=== PATIENT | male | born 2005 | race Caucasian/White ===

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

== ENCOUNTER 2025-02-07 14:38 | Emergency (ER) | payer OTHER, SELFPAY ==
[2025-02-07 14:44] VITALS: BP 152/105; PULSE 57; RESP 16; TEMP 36.8; O2SAT 98; BMI 30.1
--- NOTE | 2025-02-07 15:14 | W.ED.ABDPA2 ---
HPI - Abdominal Pain General: Chief Complaint: Nausea/Vomiting/Diarrhea Stated Complaint: NV (3xdays) Time Seen by Provider: 02/07/25 14:53 Source: patient and family Mode of arrival: ambulatory Limitations: no limitations History of Present Illness: Patient is a 19-year-old male here with family for concerns of nausea, vomiting, diarrhea, abdominal pain. Patient states he began developing acute onset nausea and vomiting while at work on Friday. Patient states nausea and vomiting persisted into Friday and he also began developing diarrhea as well as abdominal pain. He has noticed some dark red color in his emesis. He states abdominal pain has been constant and worsening in severity since onset. He is rating his abdomen currently at a 7/10 and worsens with any form of movement. Pain is mainly located to his right lower quadrant. He has not been running fevers but has felt flushed and sweaty. Denies poor food exposures. No sick contacts. Patient does not use marijuana. No alcohol/NSAID use. MD elicited complaint: abdominal pain Pertinent past history: none Onset (ago): day(s) Pain Consistency: constant Location: Diffuse and RLQ Severity: severe Pain scale (0-10): 7 Radiation: none Migration to: no migration Exacerbating factors: eating and movement Relieving factors: nothing Associated Symptoms: Reports diarrhea, hematemesis, nausea and vomiting; Denies chills, dysuria, fever(s), hematochezia and melena Related Data Home Medications ?Medication ?Instructions ?Recorded ?Confirmed No Known Home Medications 02/07/25 02/07/25 Allergies Allergy/AdvReac Type Severity Reaction Status Date / Time No Known Allergies Allergy Verified 02/07/25 14:46 Review of Systems Const: Reports: body aches; Denies: fever(s), chills, fatigue or malaise Card: Denies: chest pain Resp: Denies: dyspnea GI: Reports: abdominal pain, nausea, vomiting, hematemesis and diarrhea; Denies: hematochezia or melena : Denies: flank pain, difficulty urinating, dysuria, urinary frequency, urinary urgency or urinary hesitancy Musc: Denies: neck pain, back pain, extremity pain, extremity swelling, joint pain, joint swelling or joint redness Skin/Breast: Denies: rash Neuro: Denies: headache(s), numbness in extremities, weakness in extremities, sensory changes or dizziness [facility] ED PFSH: Medical History Psychiatric care Auditory hallucination Depression Social History Smoking and tobacco/nicotine status: never used tobacco/nicotine Alcohol intake: never Substance/Drug Use: never Physical Exam Const: COMMON NORMALS: patient oriented x3, no limitations, alert and well nourished GENERAL APPEARANCE: cooperative ORIENTATION/CONSCIOUSNESS: Yes awake, Yes oriented to person, Yes oriented to place and Yes oriented to time OTHER: facial flushing, sweating HENMT: COMMON NORMALS: normocephalic and atraumatic HEAD & SCALP: normal to inspection, normocephalic and atraumatic Eye: COMMON NORMALS: no scleral icterus Resp: COMMON NORMALS: normal respiratory effort and clear to auscultation bilaterally AUSCULTATION: clear to auscultation bilaterally Cardio: COMMON NORMALS: regular rate and regular rhythm RATE: regular rate RHYTHM: regular rhythm GI: COMMON NORMALS: Normal to inspection, nondistended, normoactive bowel sounds present, Soft to palpation, No hepatosplenomegaly present and no masses INSPECTION: Yes normal to inspection AUSCULTATION: Yes normoactive bowel sounds PALPATION: Yes Soft to palpation, Yes Tenderness to palpation present (GI) (max tenderness RLQ), Yes Guarding due to palpation present (GI), No Rigid due to palpation, Yes No hepatosplenomegaly present and Yes Other GI palpation findings present (+ psoas, obturator, heel tap) : COMMON NORMALS: Yes no CVA tenderness BLADDER/KIDNEY EXAM: Yes no CVA tenderness Back/Pelvis: COMMON NORMALS: no CVA tenderness Extremity: GENERAL: Yes normal exam except as noted Neuro: COMMON NORMALS: patient oriented x3, moves all extremities, no focal motor deficits and no sensory deficits noted SENSORIUM/ORIENTATION: Yes alert, Yes oriented to person, Yes oriented to place and Yes oriented to time Skin: COMMON NORMALS: no rashes or lesions noted GENERAL SKIN EXAM: no rashes or lesions noted Course Vital Signs: Vital signs: Vital Signs Temperature 98.3 F 02/07/25 14:44 Pulse Rate 50 L 02/07/25 16:19 Respiratory Rate 16 02/07/25 15:31 Blood Pressure 150/104 02/07/25 16:19 Pulse Oximetry 95 02/07/25 16:19 Oxygen Delivery Me thod Room Air 02/07/25 16:19 MDM - Abdominal Pain Medical Decision Making On re-examination patient appears much more comfortable. His vital signs remained stable throughout his ED stay. His blood work overall is unremarkable. He has a normal white count and normal CRP. Chemistry without derangement. His lipase is normal. UA is clear. CT scan showing no acute evidence of acute intra-abdominal or pelvic pathology. Patient feels comfortable following up with his primary care provider later this week. Return to ED precautions discussed. Differential Diagnosis Likely abdominal pain, acute appendicitis, calculus of kidney, gastroenteritis and pancreatitis Medical Records I reviewed the patient's medical records. Lab Data I reviewed the patient's lab results. 02/07/25 15:09 02/07/25 15:09 Labs/Radiology: Radiology Impressions Abdomen/Pelvis CT 02/07/25 15:23 IMPRESSION: No CT evidence of acute intra-abdominal or pelvic pathology. Laboratory Results WBC 5.85 10^3/uL (4.5-13.0) 02/07/25 15:09 RBC 5.48 10^6/uL (3.85-5.65) 02/07/25 15:09 Hgb 16.30 g/dL (13.2-15.6) H 02/07/25 15:09 Hct 46.6 % (37-53) 02/07/25 15:09 MCV 85.0 fl (82-101) 02/07/25 15:09 MCH 29.7 pg (27-33) 02/07/25 15:09 MCHC 35.0 g/dL (30-55) 02/07/25 15:09 RDW 12.3 % (12.1-15.1) 02/07/25 15:09 Plt Count 302 10^3/cmm (157-399) 02/07/25 15:09 MPV 10.6 fL (7.4-10.4) H 02/07/25 15:09 Neut % (Auto) 55.5 % 02/07/25 15:09 Lymph % (Auto) 36.2 % 02/07/25 15:09 [place] % (Auto) 6.0 % 02/07/25 15:09 Eos % (Auto) 1.4 % 02/07/25 15:09 Baso % (Auto) 0.7 % 02/07/25 15:09 Neut # (Auto) 3.25 10^3/uL (1.8-8.0) 02/07/25 15:09 Lymph # (Auto) 2.1 10^3/uL (1.5-6.5) 02/07/25 15:09 [place] # (Auto) 0.4 10^3/uL (0.2-0.9) 02/07/25 15:09 Eos # (Auto) 0.1 10^3/uL (0.0-0.8) 02/07/25 15:09 Baso # (Auto) 0.0 10^3/uL (0.0-0.1) 02/07/25 15:09 Nucleated RBC % (auto) 0 % 02/07/25 15:09 Nucleated RBCs # 0.0 /100WBC 02/07/25 15:09 Sodium 139 mmol/L (136-145) 02/07/25 15:09 Potassium 4.2 mmol/L (3.5-5.1) 02/07/25 15:09 Chloride 103 mmol/L (98-107) 02/07/25 15:09 Carbon Dioxide 25 mmol/L (22-29) 02/07/25 15:09 Anion Gap 15.2 (5-19) 02/07/25 15:09 BUN 8 mg/dL (6-20) 02/07/25 15:09 Creatinine 0.6 mg/dL (0.7-1.2) L 02/07/25 15:09 GFR Calculation 173.6 mL/min (90-130) H 02/07/25 15:09 Glucose 94 mg/dL (65-115) 02/07/25 15:09 Calculated Osmolality 286 mOsm/kg (285-295) 02/07/25 15:09 Calcium 9.9 mg/dL (8.5-10.5) 02/07/25 15:09 Total Bilirubin 0.5 mg/dL (0.15-1.2) 02/07/25 15:09 AST 19 U/L (0-40) 02/07/25 15:09 ALT 34 U/L (0-41) 02/07/25 15:09 Alkaline Phosphatase 65 U/L (40-130) 02/07/25 15:09 C-Reactive Protein 3.0 mg/L (0.0-4.9) 02/07/25 15:09 Total Protein 8.1 g/dL (6.6-8.7) 02/07/25 15:09 Albumin 4.8 g/dL (3.5-5.2) 02/07/25 15:09 Globulin 3.3 g/dL (1.3-4.6) 02/07/25 15:09 Lipase 15 U/L (13-60) 02/07/25 15:09 Urine Color Yellow (Yellow) 02/07/25 15:12 Urine Appearance Clear (CLEAR) 02/07/25 15:12 Urine pH 8.0 (5-7) A 02/07/25 15:12 Ur Specific [place] 1.018 (1.005-1.030) 02/07/25 15:12 Urine Protein Trace (Negative) A 02/07/25 15:12 Urine Glucose (UA) Negative (Normal) 02/07/25 15:12 Urine Ketones Negative (Negative) 02/07/25 15:12 Urine Blood Negative (Negative) 02/07/25 15:12 Urine Nitrate Negative (Negative) 02/07/25 15:12 Urine Bilirubin Negative (Negative) 02/07/25 15:12 Urine Urobilinogen 1.0 mg/dL (Negative) 02/07/25 15:12 Ur Leukocyte Esterase Negative (Negative) 02/07/25 15:12 Urine RBC 0-2 /hpf (0-2) 02/07/25 15:12 Urine WBC 0-5 /hpf (0-5) 02/07/25 15:12 Ur Squamous Epith Cells 0-5 /hpf (0-5) 02/07/25 15:12 Amorphous Sediment Not Reportable 02/07/25 15:12 Urine Bacteria None seen /hpf (NONE) 02/07/25 15:12 Hyaline Casts 0.40 /lpf 02/07/25 15:12 All radiology interpretation(s) finalized by discharge Discharge Plan Discharge Patient Disposition: Home Clinical Impression: Abdominal pain of unknown etiology Condition: Stable Prescriptions: No Action No Known Home Medications Discharge Orders: Discharge ED (Routine); Ordered 02/07/25 Ordered By: Sally Francois Referrals: Austen Mendosa FNP [Primary Care Provider] Patient Instructions: Abdominal Pain (ED), Patient Portal & Charlee Instructions Activity Restrictions/Additional Instructions: As we discussed, blood work here as well as CT imaging was reassuring. We discussed following up with primary care later this week for re-evaluation. You need to return to the emergency department for onset of worsening or severe abdominal pain, fevers, generally feeling worse or unwell, or any other concerns you may have. I hope you begin to feel better soon. Stand Alone Forms: Work/School Release Print Language: Palauan Coding Level of Care Code ED Industrial Relations Representative for [employer] Rodriguez
[2025-02-07 15:15] LABS: Hematocrit 46.6 % (37-53); Hemoglobin 16.30 g/dL (13.2-15.6); Mean Corpuscular HGB Conc 35.0 g/dL (30-55); Mean Corpuscular Hemoglobin 29.7 pg (27-33); Mean Corpuscular Volume 85.0 fl (82-101); Nucleated Red Blood Cells % 0 %; Platelet Count 302 10^3/cmm (157-399); Red Blood Count 5.48 10^6/uL (3.85-5.65); White Blood Count 5.85 10^3/uL (4.5-13.0)
--- NOTE | 2025-02-07 15:23 | CTR_ITS ---
PROCEDURE INFORMATION: Exam: CT Abdomen And Pelvis With Contrast Exam date and time: 02/07/2025 3:37 PM Age: 19 years old Clinical indication: Abdominal pain; Generalized; Additional info: Abdominal pain, n/v/d, max tenderness rlq TECHNIQUE: Imaging protocol: Computed tomography of the abdomen and pelvis with contrast. Axial, coronal and sagittal reformatted images were created and reviewed. Radiation optimization: All CT scans at this facility use at least one of these dose optimization techniques: automated exposure control; mA and/or kV adjustment per patient size (includes targeted exams where dose is matched to clinical indication); or iterative reconstruction. Contrast material: OMNIPAQUE 350; Contrast volume: 100 ml; Contrast route: INTRAVENOUS (IV); COMPARISON: CT abdomen pelvis w con* [id number] 09/26/2020 10:52 AM RADIATION DOSE METRICS: Total DLP (mGy-cm): 1037.53 FINDINGS: Liver: Unremarkable. Gallbladder and biliary ducts: No radiodense gallstones. No biliary ductal dilatation. Pancreas: Unremarkable. Spleen: Unremarkable. Adrenal glands: Normal. No mass. Kidneys and ureters: No mass. No radiodense calculi. No hydronephrosis. Stomach and bowel: No bowel wall thickening. No obstruction. No pneumatosis. Appendix: Normal. Intraperitoneal space: No free fluid. No organized fluid collection. No free air. Vasculature: Unremarkable. No aneurysm. Lymph nodes: No pathologically enlarged lymph nodes. Urinary bladder: Unremarkable as visualized. Reproductive: Unremarkable. Bones/joints: No acute osseous abnormality. Soft tissues: Unremarkable. CT/CT abdomen pelvis w con* [id number] IMPRESSION: No CT evidence of acute intra-abdominal or pelvic pathology.
[2025-02-07 15:27] LABS: Glucose Urine UA Negative (Normal); Nitrate Urine Negative (Negative); Specific Gravity, Urine 1.018 (1.005-1.030)
[2025-02-07] MEDS: ondansetron 2 mg/ML SDV 2 mL 4 MG IVP (15:28)
[2025-02-07 15:31] VITALS: RESP 16
[2025-02-07] MEDS: morphine 4 mg/mL SDV 1 mL IVP (15:31)
[2025-02-07 15:33] LABS: Alanine Aminotransferase 34 U/L (0-41); Albumin Level 4.8 g/dL (3.5-5.2); Alkaline Phosphatase 65 U/L (40-130); Anion Gap 15.2 (5-19); Aspartate Amino Transferase 19 U/L (0-40); Blood Urea Nitrogen 8 mg/dL (6-20); Calcium 9.9 mg/dL (8.5-10.5); Carbon Dioxide 25 mmol/L (22-29); Chloride 103 mmol/L (98-107); Creatinine Clr Calc Pharmacy 229.4003; Globulin 3.3 g/dL (1.3-4.6); Glucose 94 mg/dL (65-115); Lipase 15 U/L (13-60); Osmolality Calculated 286 mOsm/kg (285-295); Potassium 4.2 mmol/L (3.5-5.1); Sodium 139 mmol/L (136-145); Total Protein 8.1 g/dL (6.6-8.7)
[2025-02-07 15:33] LABS: Add Urine Microscopic? YES
[2025-02-07] MEDS: iohexol 350 mg/mL 500 mL Btl (per mL) IV (15:41)
[2025-02-07 16:19] VITALS: BP 150/104; PULSE 50; O2SAT 95
[2025-02-07 17:15] VITALS: BP 148/81; PULSE 56; O2SAT 96
--- OUTSIDE RECORDS SUMMARY | 2025-02-09 11:25 | XMS_ITS | Clinical Summary ---
Author Organization [facility] Address [address] [place] [address] Care Team Providers Care Creative Services Producer Name Role Phone KirkMich espino Brenda GARCIA Primary Care Provider [phone] Allergies No known active allergies Medications cetirizine (ZYRTEC) 10 mg tablet Take 10 mg by mouth daily. Active inhalational spacing device Spacer 1 Device by [facility].(Non-Drug; Combo Route) route see administration instructions. Active fluticasone (FLOVENT HFA) 110 mcg/actuation HFA Aerosol InhalerIndicati ons:Cough,Dyspn ea, unspecified Take 2 Puffs by inhalation 2 times daily. 12 Gram 4 09/14/19 16 Active albuterol (PROVENTIL,VENT MOJGAN) 2.5 mg /3 mL (0.083 %) Solution for NebulizationInd ications:Cough, Dyspnea, unspecified Take 3 mL (2.5 mg) by inhalation every 4 hours as needed for Respiration. 150 mL 4 09/14/19 16 Active albuterol HFA 90 mcg inhalerIndicati ons:Cough,Dyspn ea, unspecified Take 2 Puffs by inhalation every 4 hours as needed for Respiration. 8.5 Gram 4 09/14/19 16 Active topiramate (TOPAMAX) 25 mg tablet 25 mg in am 50 mg in pm. 90 Tablet 09/20/19 17 Active Active Problems Problem Noted Date Diagnosed Date Allergic symptoms 09/14/2015 Lobar pneumonia due to unspecified organism 03/31 Family History Medical History Relation Name Comments Allergic Rhinitis Father Bob Allergic Rhinitis Mother Karma Anxiety Mother Karma Asthma Mother Karma GERD Mother Karma Allergy-severe Neg Hx Chronic Sinusitis Neg Hx Cystic Fibrosis Neg Hx Eczema Neg Hx Immunodeficiency Neg Hx Tuberculosis Neg Hx Relation Name Status Comments Brother Makenna Alive Father Bob Alive Mother Karma Alive Sister Yolanda Alive Social History Tobacco Use Types Packs/Day Years Used Date Smoking Tobacco: Never Assessed Sex and Gender Information Value Date Recorded Sex Assigned at Not on file Legal Sex Male 3:35 PM CDT Gender Identity Not on file Sexual Orientation Not on file Last Filed Vital Signs Vital Sign Reading Time Taken Comments Blood Pressure 125/80 08/02/2016 12:51 PM [employer] Pulse 98 08/02/2016 12:51 PM [employer] Temperature - - Respiratory Rate 18 09/14/2015 11:27 AM CDT Oxygen Saturation 97% 08/02/2016 12:51 PM [employer] Inhaled Oxygen Concentration - - Weight 56.2 kg (124 lb) 08/02/2016 12:51 PM [employer] Height 148.8 cm (4' 10.6 ) 08/02/2016 12:[address] Body Mass Index 25.39 08/02/2016 12:51 PM [employer] Body Mass Index Percentile 96.41% 08/02/2016 12: 51 PM [employer] Growth Chart: CDC (Boys, 2-2 0 Years) Plan of Treatment Health Maintenance Due Date Last Done Comments CHLAMYDIA SCREENING (ANNUAL) 11-24 YEARS 2016 HPV VACCINES (1 - Male 3-dose series) 2020 DTAP/TDAP/TD VACCINES (1 - Tdap) 2024 HEPATITIS B VACCINES (1 of 3 - 19+ 3-dose series) 03/01 INFLUENZA VACCINE (#1) 2025 Insurance MEDICAID [place] Care Teams Creative Services Producer Relationship Specialty Start Date End Date Mich Bradley DO [address] [place] [address] PCP - General Family Practice 12/12/14
--- OUTSIDE RECORDS SUMMARY | 2025-02-09 11:25 | XMS_ITS | Clinical Summary ---
Author Organization [employer] [facility] Address [address] Sharma: [place] [address] Care Team Providers Care Frit Coater Name Role Phone Falguni Alvarez Primary Care Provider Allergies Active Allergy Reactions Criticality Noted Date Comments Cat Dander Unknown 06/27/2023 Milk Diarrhea Medium 04/17/2020 Medications ZOLMitriptan (ZOMIG) [place], Non-Aerosol ADMINISTER 1 SPRAY INTO ONE NOSTRIL NEEDED FOR MIGRAINE 2 Active albuterol sulfate HFA 90 mcg/actuation aerosol inhalerIndicatio ns:Moderate persistent asthma with acute exacerbation Take 2 Puffs by inhalation every 4 hours as needed for Wheezing or Shortness of Breath. 8.5 Gram 4 3 Active traZODone (DESYREL) 50 mg tablet Take 50 mg by mouth daily at bedtime. 3 Active hydrOXYzine pamoate (VISTARIL) 25 mg capsule 25 mg every 6 hours as needed. 3 Active cholecalciferol 1,250 mcg (50,000 unit) CapsuleIndicatio ns:Vitamin D deficiency Take 1 Capsule (50,000 Units) by mouth every 7 days. 13 Capsule 1 4 Active Additional Information Patient not taking.Reported on 08/13/2024 sertraline (Zoloft) 50 mg tabletIndication s:Severe episode of recurrent major depressive disorder, without psychotic features (CMS/HCC) Take 1 Tablet (50 mg) by mouth daily. 90 Tablet 3 Active Active Problems Problem Noted Date Diagnosed Date Severe episode of recurrent major depressive disorder, without psychotic features 08/13/2024 Vitamin D deficiency 08/13/2024 Intractable migraine with aura with status migra inosus 06/18/2022 Mild intermittent asthma without complication Allergic symptoms 09/14/2015 Resolved Problems Problem Noted Date Diagnosed Date Resolved Date Lobar pneumonia due to unspecified organism 04/24/2015 06/18/2022 Encounters Date Type Department Care Team Description 02/02/2025 External Device Data [facility] Provider, Abstract 12/28/2024 External Device Data [facility] Provider, Abstract from Last 3 Months Family History Medical History Relation Name Comments Allergic Rhinitis Father Bob Allergic Rhinitis Mother Asha Anxiety Mother Asha Asthma Mother Asha GERD Mother Asha Allergy-severe Neg Hx Chronic Sinusitis Neg Hx Cystic Fibrosis Neg Hx Eczema Neg Hx Immunodeficiency Neg Hx Tuberculosis Neg Hx Relation Name Status Comments Brother Makenna Alive Father Bob Alive Mother Asha Alive Sister Yolanda Alive Social History Tobacco Use Types Packs/Day Years Used Date Smoking Tobacco: Never Smokeless Tobacco: Never Tobacco Cessation:Counseling Given: Not Answered Alcohol Use Standard Drinks/Week Comments Not Currently 0 (1 standard drink = 0.6 oz pur e alcohol) Sex and Gender Information Value Date Recorded Sex Assigned at Not on file Legal Sex Male 9:00 AM [employer] Gender Identity Not on file Sexual Orientation Not on file Last Filed Vital Signs Vital Sign Reading Time Taken Comments Blood Pressure 128/66 08/13/2024 9:26 AM [employer] Pulse 97 08/13/2024 9:26 AM [employer] Temperature 36.5 C (97.7 F) 08/13/2024 9:26 AM [employer] Respiratory Rate 17 08/13/2024 9:26 AM [employer] Oxygen Saturation 100% 08/13/2024 9:26 AM [employer] Inhaled Oxygen Concentration - - Weight 97.2 kg (214 lb 3.2 oz) 08/13/2024 9:26 A M [employer] Height 182.9 cm (6') 08/13/2024 9:26 AM [employer] Body Mass Index 29.05 08/13/2024 9:26 AM [employer] Plan of Treatment Health Maintenance Due Date Last Done Comments CHLAMYDIA SCREENING (ANNUAL) 11-24 YEARS 2016 HPV VACCINES (1 - Male 3-dose series) 2020 DTAP/TDAP/TD VACCINES (1 - Tdap) 2024 HEPATITIS B VACCINES (1 of 3 - 19+ 3-dose series) 03/01 INFLUENZA VACCINE (#1) 2025 06/27/2023 Preventative Visit- Commercial Completed 08/13/2024 Insurance [employer] [id number] Member Subscriber Plan / Payer (Ef fective 2021-Present) Name:RONI MCGOVERN Relation to Subscriber:Child Name:MARIAMA MCGOVERN Date of :1986 (Home) Address: [address] [place] [address] Payer ID:[id number] (NAIC) Type:HMO Address: [facility] [id number] MEDICAID [employer] [id number] [facility] MEDICAID Care Teams Frit Coater Relationship Specialty Start Date End Date Falguni Alvarez DO [address] [place] [address] PCP - General Family Practice 10/30/22
--- OUTSIDE RECORDS SUMMARY | 2025-02-09 11:25 | XMS_ITS | Encounter Summary ---
Author Organization [email or web address] Address [address] [place] [address] Care Team Providers Care Radio Frequency Design Engineer Name Role Phone Falguni Alvarez DO Primary Care Provider Encounter Details Date Type Department Care Team (Late st Contact Info) Description 02/02/2025 External Device Data [facility] Provider, Abstract NO ADDRESS ON FILE Social History Tobacco Use Types Packs/Day Years Used Date Smoking Tobacco: Never Smokeless Tobacco: Never Alcohol Use Standard Drinks/Week Comments Not Currently 0 (1 standard drink = 0.6 oz pur e alcohol) Sex and Gender Information Value Date Recorded Sex Assigned at Not on file Legal Sex Male 9:00 AM [employer] Gender Identity Not on file Sexual Orientation Not on file documented as of this encounter Plan of Treatment Not on file documented as of this encounter Visit Diagnoses Not on filedocumented in this encounter Additional Health Concerns Assessment Noted Time PHQ-9 Depression Total Score: 6 08/13/19 25 9:25 AM [employer] documented as of this encounter Care Teams Radio Frequency Design Engineer Relationship Specialty Start Date End Date Falguni Alvarez DO [address] [place] [address] PCP - General Family Practice 10/30/22 documented as of this encounter
== END 2025-02-07 17:17 | disposition home or self-care (01) ==
PROVIDERS: Emergency Provider Physician Assistant; PCP Nurse Practitioner Family
DX: R10.9 Unspecified abdominal pain (principal)
CPT/HCPCS: 36415; 74177; 80053; 81001; 83690; 85025; 86140; 96361; 96374; 96375; 99285; J2270; J2405; J7030